=== PATIENT | female | born 1990 | race American Indian/Alaskan Native ===

== ENCOUNTER 2017-08-09 18:59 | Emergency (ER) | payer BC, OTHER ==
[2017-08-09 19:55] LABS: Hematocrit 37.4 % (30.3-42.9); Hemoglobin 12.8 gm/dl (10.1-14.3); Mean Corpuscular HGB Conc 34 % (30-34); Mean Corpuscular Hemoglobin 30 pg (28-32); Mean Corpuscular Volume 89 fl (79-97); Platelet Count 314 K/mm3 (140-440); Red Blood Count 4.21 M/mm3 (3.65-5.03); Red Cell Distribution Width 13.2 % (13.2-15.2)
[2017-08-09 20:09] LABS: BUN/Creatinine Ratio 16; Blood Urea Nitrogen 11 mg/dL (7-17); Calcium 9.3 mg/dL (8.4-10.2); Hemolysis Index 3
--- NOTE | 2017-08-09 22:43 | Ultrasound Report ---
FINAL REPORT PROCEDURE: US OB < = 14 WEEKS FETUS TECHNIQUE: Real-time transabdominal sonography of the uterus, placenta, amniotic fluid, adnexa, and fetus was performed with image documentation. Measurements were obtained to determine age/size. M-mode Doppler was used to document heartbeat. CPT 20121 HISTORY: pain/bleeding with pregancy COMPARISON: No prior studies are available for comparison. FINDINGS: CRL: 6.4 mm, which corresponds to a gestational age of: 6 weeks, 1 days. Yolk Sac: Normal. Embryonic Cardiac Activity: 113 beats per minute regular Gestational Sac: Normal. Amniotic fluid: Normal. Cervix: Normal. Right Ovary: Normal in appearance with normal Doppler signal Left Ovary: Normal in appearance with normal Doppler signals Estimated delivery date: 04/03/2018 Uterus and adnexa: Normal. IMPRESSION: Single live intrauterine gestation at approximately 6 weeks and 1 day. EDC by US 04/03/2018
--- NOTE | 2017-08-09 22:43 | Ultrasound Report ---
FINAL REPORT PROCEDURE: US OB TRANSVAGINAL TECHNIQUE: Real-time transvaginal sonography of the uterus, placenta, amniotic fluid, adnexa, and fetus was performed with image documentation. Measurements were obtained to determine age/size. M-mode Doppler was used to document heartbeat. CPT 08212 HISTORY: pain/bleeding with pregancy COMPARISON: No prior studies are available for comparison. FINDINGS: CRL: 6.4mm, which corresponds to a gestational age of: 6weeks, 1 days. Yolk Sac: Normal. Embryonic Cardiac Activity: 113 beats per minute regular Gestational Sac: Normal. Right Ovary: Normal in appearance and demonstrates normal Doppler signal Left Ovary: Normal appearance with normal Doppler signal Estimated delivery date: 04/03/2018 IMPRESSION: 1. Single living intrauterine gestation at approximately 6 weeks and 1 day 2. EDC by US 04/03/2018.
[2017-08-10 01:17] LABS: Bilirubin,Urine NEG (Negative); Blood,Urine MOD (Negative); Color,Urine Yellow (Yellow); Mucus,Urine 2+ /HPF
--- NOTE | 2017-08-10 04:15 | Emergency Department Report ---
ED Female HPI - General Chief complaint: Vaginal Bleeding Stated complaint: POSS MISCARRIAGE Time Seen by Provider: 08/10/17 04:07 Source: patient Mode of arrival: Ambulatory Limitations: No Limitations - History of Present Illness Initial comments: Patient is 27 years old female recently moved to this area. Patient is 4, para 2 with one miscarriage. Patient presented to the ER complaining of vaginal spotting since yesterday with crampy pelvic pain. Patient denied any discharge. No urinary symptoms. Patient denied any chest pain, weakness numbness or tingling sensation or dizziness. MD Complaint: vaginal bleeding, pelvic pain -: Last night Location: suprapubic Severity: mild Consistency: intermittent Associated Symptoms: vaginal bleeding, abdominal pain. denies: vaginal discharge, nausea/vomiting - Related Data Allergies Allergy/AdvReac Type Severity Reaction Status Date / Time No Known Allergies Allergy Unverified 08/09/17 19:26 ED Review of Systems ROS: Stated complaint: POSS MISCARRIAGE Other details as noted in HPI Comment: All other systems reviewed and negative Constitutional: denies: chills, fever ED Past Medical Hx - Past Medical History Previous Medical History?: No Hx Diabetes: Yes (prediabetes) - Surgical History Additional Surgical History: - Social History Smoking Status: Former Smoker Substance Use Type: None ED Physical Exam - General Limitations: No Limitations General appearance: alert, in no apparent distress - Head Head exam: Present: atraumatic, normocephalic, normal inspection - Eye Eye exam: Present: normal appearance - ENT ENT exam: Present: normal exam, normal orophraynx, mucous membranes moist - Respiratory Respiratory exam: Present: normal lung sounds bilaterally. Absent: respiratory distress, wheezes, rales, rhonchi, stridor, accessory muscle use, decreased breath sounds, prolonged expiratory - Cardiovascular Cardiovascular Exam: Present: regular rate, normal rhythm, normal heart sounds - GI/Abdominal GI/Abdominal exam: Present: soft, normal bowel sounds. Absent: distended, tenderness, guarding, rebound, rigid, organomegaly, mass, bruit, pulsatile mass , hernia - Extremities Exam Extremities exam: Present: normal inspection, full ROM, normal capillary refill. Absent: tenderness, pedal edema, calf tenderness - Back Exam Back exam: Present: normal inspection, full ROM, CVA tenderness (R). Absent: CVA tenderness (L), muscle spasm, paraspinal tenderness, vertebral tenderness, rash noted - Neurological Exam Neurological exam: Present: alert, oriented X3, CN II-XII intact, normal gait, reflexes normal. Absent: motor sensory deficit - Skin Skin exam: Present: warm, intact, normal color. Absent: cyanosis, diaphoretic, erythema, urticaria ED Course Vital Signs 08/09/17 19:22 Temperature 98.7 F Pulse Rate 70 Respiratory 18 Rate Blood Pressure 103/48 O2 Sat by Pulse 100 Oximetry ED Medical Decision Making - Lab Data Result diagrams: 08/09/17 19:34 08/09/17 19:34 - Radiology Data Radiology results: report reviewed Referring Physician: ED ALICE Patient Name: KAM ROJAS Date of : 1990 Sex: Female Report Date: 2017-08-09 Report Status: Finalized Findings [facility] [address] [place] [address] Ultrasound Report Signed Patient: KAM ROJAS MR#: [id number] : 1990 Acct:[id number] Age/Sex: 27 / F ADM Date: 08/09/17 Loc: ED Attending Dr: Ordering Physician: LISSA JENKINS MD Date of Service: 08/09/17 Procedure(s): US OB transvaginal Accession Number(s): [id number] cc: LISSA JENKINS MD FINAL REPORT PROCEDURE: US OB TRANSVAGINAL TECHNIQUE: Real-time transvaginal sonography of the uterus, placenta, amniotic fluid, adnexa, and fetus was performed with image documentation. Measurements were obtained to determine age/size. M-mode Doppler was used to document heartbeat. CPT 61314 HISTORY: pain/bleeding with pregancy COMPARISON: No prior studies are available for comparison. FINDINGS: CRL: 6.4mm, which corresponds to a gestational age of: 6weeks, 1 days. Yolk Sac: Normal. Embryonic Cardiac Activity: 113 beats per minute regular Gestational Sac: Normal. Right Ovary: Normal in appearance and demonstrates normal Doppler signal Left Ovary: Normal appearance with normal Doppler signal Estimated delivery date: 04/03/2018 IMPRESSION: 1. Single living intrauterine gestation at approximately 6 weeks and 1 day 2. EDC by US 04/03/2018. Transcribed By: [facility] [place] Dictated By: GISSELLE HAWKINS Electronically Authenticated By: GISSELLE HAWKINS Signed Date/Time: 08/09/172238 DD/ 38 TD/TT: 08/09/172238 Critical care attestation.: If time is entered above; I have spent that time in minutes in the direct care of this critically ill patient, excluding procedure time. ED Disposition Clinical Impression: Abdominal pain affecting Disposition: DC-01 TO HOME OR SELFCARE Is pt being admited?: No Condition: Stable Instructions: Abdominal Pain in (ED) Referrals: CINDY SUNG MD [Staff Physician] - 3-5 Days
[2017-08-10 04:33] VITALS: BP 110/68
== END 2017-08-10 04:33 | disposition home or self-care (01) ==
LOC: ED 18:59
DX: O26.891 Other specified pregnancy related conditions, first trimester (principal); O24.911 Unspecified diabetes mellitus in pregnancy, first trimester; Z87.891 Personal history of nicotine dependence; Z3A.01 Less than 8 weeks gestation of pregnancy
CPT/HCPCS: 36415; 76801; 76817; 80048; 81001; 84702; 85027; 86900; 86901